=== PATIENT | female | born 1945 | race Two or more races ===

== ENCOUNTER 2020-03-08 18:31 | Emergency (ER) | payer OTHER ==
[~2020-03-08] VITALS: Ht 154.9 cm; Wt 72.1 kg
[2020-03-08] MEDS ORDERED: ONDANSETRON ODT 4 MG TAB PO ONE (19:00)
[2020-03-08 21:43] VITALS: BP 140/56
== END 2020-03-08 22:15 | disposition home or self-care (01) ==
LOC: ER 18:31
DX: U07.1 COVID-19 (principal); R11.2 Nausea with vomiting, unspecified
CPT/HCPCS: 36415; 71045; 87426; 99284; Q0162

== ENCOUNTER 2020-03-12 20:25 | Emergency (ER) | payer OTHER ==
[~2020-03-12] VITALS: Ht 157.5 cm; Wt 74.8 kg
[2020-03-12 21:04] VITALS: BP 178/67
== END 2020-03-12 23:40 | disposition home or self-care (01) ==
LOC: ER 20:28
DX: U07.1 COVID-19 (principal); M79.10 Myalgia, unspecified site; R53.1 Weakness; M25.50 Pain in unspecified joint
CPT/HCPCS: 71045

== ENCOUNTER 2020-03-15 09:17 | Inpatient (IN) | payer OTHER ==
[~2020-03-15] VITALS: Ht 157.5 cm; Wt 74.8 kg
[2020-03-15] MEDS ORDERED: SODIUM CHLORIDE 0.9% 1,000 ML IV ONE (09:55)
[2020-03-15 11:08] LABS: Basophils # (auto) 0 10 ^3/uL (0-0.2); Basophils % (auto) 0.1 % (0.0-2.0); Eosinophils # (auto) 0 10 ^3/uL (0-0.8); Eosinophils % (auto) 0.1 % (0.0-7.0); Neutrophils # (auto) 5.6 10 ^3/uL (1.6-8.6); Red Cell Distribution Width 13.3 % (11.8-14.3)
[2020-03-15 11:09] LABS: Hematocrit 32.6 % (36.0-46.0); Hemoglobin 10.9 g/dL (12.2-16.2); Lymphocytes % (auto) 14.4 % (10.0-50.0); Mean Corpuscular Hemoglobin 29.7 pg (28.0-32.0); Mean Corpuscular Hgb Conc. 33.6 g/dL (32.0-36.0); Mean Corpuscular Volume 88.5 fL (80.0-100.0); Monocytes # (auto) 0.5 10 ^3/uL (0-1.3); Monocytes % (auto) 6.5 % (0.0-12.0); Neutrophils % (auto) 78.9 % (37.0-80.0); Platelet Count (auto) 476 10^3/uL (140-450); Red Blood Cells 3.68 10^6/uL (4.0-5.20); White Blood Cell 7.1 10^3/uL (4.4-10.8)
[2020-03-15 11:39] LABS: Albumin 3.4 g/dL (3.4-5.0); Anion Gap 9 (5-15); BUN/Creatinine Ratio 20.6; Blood Urea Nitrogen 14 mg/dL (7-18); Calcium 8.2 mg/dL (8.5-10.1); Carbon Dioxide 26 mmol/L (21-32); Chloride 84 mmol/L (98-107); GFR African American 109 mL/min; GFR Non-African American 90 mL/min; Glucose 110 mg/dL (74-106); Potassium 4.3 mmol/L (3.5-5.1)
[2020-03-15 11:46] LABS: Alanine Aminotransferase 22 U/L (13-56); Alkaline Phosphatase 86 U/L (45-117); Aspartate Aminotransferase 18 U/L (15-37); Bilirubin, Total 0.3 mg/dL (0.2-1.0); Total Protein 6.9 g/dL (6.4-8.2)
[2020-03-15 12:07] LABS: Sodium 119 mmol/L (136-145)
[2020-03-15] MEDS ORDERED: IOHEXOL 350 MG/ML 100ML IJ ONE (13:02)
[2020-03-15 15:05] LABS: Urine WBC None Seen /hpf (0 - 5)
[2020-03-15 15:19] LABS: Urine Amorphous Crystal FEW /hpf (None Seen); Urine Bacteria NONE SEEN /hpf (None Seen); Urine Blood Negative /uL (Negative); Urine Hyaline Cast FEW /lpf (0 - 2); Urine Mucus FEW (None Seen); Urine Specific Gravity 1.013 (1.001-1.035)
[2020-03-15] MEDS ORDERED: ALBUTEROL SULF HFA 90MCG INH 200DOSE IN PRN (16:30)
[2020-03-15] MEDS ORDERED: MORPHINE SULF INJ 2 MG/ML SYRINGE 1ML IV PRN (16:30)
[2020-03-15] MEDS ORDERED: NITROGLYCERIN 0.4 MG SL TAB SL PRN (16:30)
[2020-03-15] MEDS ORDERED: ONDANSETRON HCL 4 MG/2 ML VIAL IV PRN (16:30)
[2020-03-15] MEDS ORDERED: hydrALAZINE HCL 20 MG/ML VL IV PRN (16:30)
[2020-03-15] MEDS ORDERED: HYDROcodone-ACET 5/325MG TAB PO PRN (16:30)
[2020-03-15] MEDS ORDERED: ACETAMINOPHEN 325 MG TAB PO PRN (16:30)
[2020-03-15] MEDS: SODIUM CHLORIDE 0.9% 1,000 ML IV SCH (17:13)
[2020-03-15] MEDS ORDERED: FURO1TAB33 PO (17:40)
[2020-03-15] MEDS ORDERED: LISI-646 PO (17:40)
[2020-03-15 17:53] LABS: BUN/Creatinine Ratio 20.3; Potassium 4.2 mmol/L (3.5-5.1)
[2020-03-15 17:54] LABS: Calcium 7.8 mg/dL (8.5-10.1)
[2020-03-15 21:14] LABS: Anion Gap 7 (5-15); Blood Urea Nitrogen 13 mg/dL (7-18); Calcium 7.6 mg/dL (8.5-10.1); Carbon Dioxide 24 mmol/L (21-32); Chloride 90 mmol/L (98-107); GFR African American 115 mL/min; GFR Non-African American 95 mL/min; Glucose 107 mg/dL (74-106); Potassium 4.2 mmol/L (3.5-5.1); Sodium 121 mmol/L (136-145)
[2020-03-15] MEDS: ENOXAPARIN SOD 80 MG/0.8ML SYRINGE SC SCH (22:17)
--- NOTE | 2020-03-15 22:50 | NUR ---
Respiratory note: ASSESSMENT FOR PRN MDI. PT IN NO RESPIRATORY DISTRESS AT THIS TIME. HR 67, SPO2 98% ON 2L NC, RR 18. MDI TX NOT INDICATED AT THIS TIME, WILL CONTINUE TO MONITOR.
[2020-03-16] MEDS: SODIUM CHLORIDE 0.9% 1,000 ML IV SCH ×3 (00:05→16:30)
[2020-03-16 01:07] LABS: Potassium 4.2 mmol/L (3.5-5.1)
[2020-03-16 01:34] LABS: BUN/Creatinine Ratio 17.9; Calcium 7.7 mg/dL (8.5-10.1)
[2020-03-16 03:36] VITALS: BP 108/46
[2020-03-16] MEDS: ALBUTEROL SULF HFA 90MCG INH 200DOSE IN SCH ×3 (06:59→20:54)
[2020-03-16 08:14] LABS: Basophils # (auto) 0 10 ^3/uL (0-0.2); Basophils % (auto) 0.5 % (0.0-2.0); Eosinophils # (auto) 0 10 ^3/uL (0-0.8); Eosinophils % (auto) 0.3 % (0.0-7.0); Hematocrit 34.9 % (36.0-46.0); Hemoglobin 11.5 g/dL (12.2-16.2); Lymphocytes # (auto) 2.4 10 ^3/uL (0.4-5.4); Lymphocytes % (auto) 30.4 % (10.0-50.0); Mean Corpuscular Hemoglobin 29.6 pg (28.0-32.0); Mean Corpuscular Hgb Conc. 33.1 g/dL (32.0-36.0); Mean Corpuscular Volume 89.5 fL (80.0-100.0); Monocytes # (auto) 0.4 10 ^3/uL (0-1.3); Monocytes % (auto) 5.5 % (0.0-12.0); Neutrophils % (auto) 63.3 % (37.0-80.0); Nucleated Red Blood Cells % 0.2 %; Platelet Count (auto) 484 10^3/uL (140-450); Red Cell Distribution Width 13.5 % (11.8-14.3); White Blood Cell 7.9 10^3/uL (4.4-10.8)
[2020-03-16 08:36] LABS: Calcium 7.8 mg/dL (8.5-10.1); Potassium 4.5 mmol/L (3.5-5.1)
[2020-03-16 08:39] LABS: BUN/Creatinine Ratio 11.8
[2020-03-16] MEDS: DexAMETHasone 4 MG TAB PO SCH (11:22)
[2020-03-16] MEDS: ZINC SULFATE 220mg CAP or TAB PO SCH (11:22)
[2020-03-16] MEDS: PANTOPRAZOLE 40 MG TAB PO SCH (11:23)
[2020-03-16] MEDS: ASCORBIC ACID 500 MG TAB PO SCH (11:23)
[2020-03-16] MEDS: ENOXAPARIN SOD 80 MG/0.8ML SYRINGE SC SCH ×2 (11:24→22:05)
[2020-03-16] MEDS: CHOLECALCIFEROL (VITD3) 2,000 UNIT CAP PO SCH (11:24)
[2020-03-16 13:05] LABS: BUN/Creatinine Ratio 17.2; Calcium 7.8 mg/dL (8.5-10.1); Potassium 4.3 mmol/L (3.5-5.1)
[2020-03-16 16:10] LABS: BUN/Creatinine Ratio 19.6; Calcium 7.9 mg/dL (8.5-10.1); Potassium 4.6 mmol/L (3.5-5.1)
[2020-03-16] MEDS ORDERED: HYDR25TA4 PO (18:34)
[2020-03-16] MEDS ORDERED: LISI30TA4 PO (18:34)
[2020-03-16] MEDS ORDERED: METO-169 PO (18:35)
[2020-03-16 20:49] LABS: BUN/Creatinine Ratio 13.2; Calcium 8.3 mg/dL (8.5-10.1); Potassium 4.7 mmol/L (3.5-5.1)
[2020-03-16 23:29] LABS: Calcium 8.3 mg/dL (8.5-10.1); Potassium 4.5 mmol/L (3.5-5.1)
[2020-03-17 03:08] LABS: BUN/Creatinine Ratio 14.3; Calcium 8.4 mg/dL (8.5-10.1); Potassium 4.6 mmol/L (3.5-5.1)
[2020-03-17] MEDS: ALBUTEROL SULF HFA 90MCG INH 200DOSE IN SCH ×2 (06:31→14:52)
--- NOTE | 2020-03-17 06:31 | NUR ---
Respiratory note: PT IS AWAKE, AND ALERT. NO RESPIRATORY DISTRESS NOTED. SPO2 97% ON RA, HR 67, RR 22, BS CLEAR BILATERALLY. 1 PUFF ALBUTEROL (90MCG) GIVEN VIA MDI WITH CHAMBER. NO ADVERSE EFFECTS NOTED. NO FURTHER RESPIRATORY INTERVENTIONS INDICATED AT THIS TIME. RN AT BEDSIDE. CHARTING COMPLETE FROM OUTSIDE OF PT ROOM PER COVID-19 PRECAUTIONS/PROTOCOL.
[2020-03-17] MEDS: SODIUM CHLORIDE 0.9% 1,000 ML IV SCH ×2 (06:37→08:33)
[2020-03-17 07:21] LABS: Calcium 8.7 mg/dL (8.5-10.1); Potassium 4.6 mmol/L (3.5-5.1)
[2020-03-17 07:23] LABS: BUN/Creatinine Ratio 16.4
[2020-03-17 07:59] LABS: Basophils # (auto) 0 10 ^3/uL (0-0.2); Eosinophils # (auto) 0 10 ^3/uL (0-0.8); Hemoglobin 10.4 g/dL (12.2-16.2); Monocytes # (auto) 0.2 10 ^3/uL (0-1.3); Neutrophils # (auto) 3.7 10 ^3/uL (1.6-8.6); Nucleated Red Blood Cells % 0.1 %; White Blood Cell 4.9 10^3/uL (4.4-10.8)
[2020-03-17 08:01] LABS: Basophils % (auto) 0.4 % (0.0-2.0); Hematocrit 31.6 % (36.0-46.0); Lymphocytes % (auto) 19.8 % (10.0-50.0); Mean Corpuscular Hemoglobin 29.4 pg (28.0-32.0); Mean Corpuscular Hgb Conc. 33.1 g/dL (32.0-36.0); Mean Corpuscular Volume 89.1 fL (80.0-100.0); Neutrophils % (auto) 75.8 % (37.0-80.0); Platelet Count (auto) 459 10^3/uL (140-450); Red Blood Cells 3.55 10^6/uL (4.0-5.20); Red Cell Distribution Width 14.1 % (11.8-14.3)
[2020-03-17 08:05] LABS: CRP High Sensitivity 6.01 mg/dL (< 0.3)
[2020-03-17] MEDS: PANTOPRAZOLE 40 MG TAB PO SCH (09:43)
[2020-03-17] MEDS: ASCORBIC ACID 500 MG TAB PO SCH (09:43)
[2020-03-17] MEDS: DexAMETHasone 4 MG TAB PO SCH (09:43)
[2020-03-17] MEDS: ZINC SULFATE 220mg CAP or TAB PO SCH (09:43)
[2020-03-17] MEDS: CHOLECALCIFEROL (VITD3) 2,000 UNIT CAP PO SCH (09:43)
[2020-03-17] MEDS: ENOXAPARIN SOD 80 MG/0.8ML SYRINGE SC SCH (09:44)
[2020-03-17 10:51] LABS: BUN/Creatinine Ratio 14.9; Calcium 8.6 mg/dL (8.5-10.1); Potassium 4.3 mmol/L (3.5-5.1)
[2020-03-17] MEDS ORDERED: SODIUM CHLORIDE 0.9% 1,000 ML IV SCH (12:30)
[2020-03-17] MEDS ORDERED: METOPROLOL SUCCINATE XL 50 MG TAB PO ONE (14:00)
[2020-03-17] MEDS ORDERED: LISINOPRIL 20 MG TAB PO ONE (14:00)
[2020-03-17 15:33] LABS: BUN/Creatinine Ratio 16.9; Calcium 8.1 mg/dL (8.5-10.1); Potassium 5.1 mmol/L (3.5-5.1)
[2020-03-17] MEDS ORDERED: ZINC220T6 PO (16:43)
[2020-03-17] MEDS ORDERED: ALBUAER3 IN (16:43)
[2020-03-17] MEDS ORDERED: HYDR-2691 PO (16:43)
[2020-03-17] MEDS ORDERED: DEX4T PO (16:43)
[2020-03-17] MEDS ORDERED: AZIT500T66 PO (16:43)
[2020-03-17] MEDS ORDERED: CHOL1CAP47 PO (16:43)
[2020-03-17] MEDS ORDERED: ASCO500T11 PO (16:43)
[2020-03-17] MEDS ORDERED: LISI-646 PO (16:44)
[2020-03-17 17:00] VITALS: BP 171/67
[2020-03-17] MEDS ORDERED: hydrALAZINE HCL 25 MG TAB PO SCH (18:00)
[2020-03-18] MEDS ORDERED: LISINOPRIL 20 MG TAB PO SCH (10:00)
[2020-03-18] MEDS ORDERED: METOPROLOL SUCCINATE XL 50 MG TAB PO SCH (10:00)
== END 2020-03-17 19:15 | disposition home health service (06) | DRG 177 ==
LOC: ER 09:17 → OVERFLOW 09:18
PROVIDERS: ADMIT Internal Medicine; ATTEND Internal Medicine
DX: U07.1 COVID-19 (principal); J96.01 Acute respiratory failure with hypoxia; E87.1 Hypo-osmolality and hyponatremia; J98.11 Atelectasis; F41.9 Anxiety disorder, unspecified; I10 Essential (primary) hypertension
CPT/HCPCS: 36415; 36600; 71045; 71275; 80048; 80053; 81001; 82728; 82805; 83880; 84484; 85025; 85379; 86141; 87040; 87426; 93970; 94640; 97110; 97116; 97530; 99291; G0378

== ENCOUNTER 2020-03-25 18:28 | Inpatient (IN) | payer OTHER ==
[~2020-03-25] VITALS: Ht 157.5 cm; Wt 78.0 kg
[~2020-03-25 18:28] MED LIST: ALBUAER3 IN; ASCO500T11 PO; AZIT500T66 PO; CHOL1CAP47 PO; DEX4T PO; FURO1TAB33 PO; HYDR-2691 PO; HYDR25TA4 PO; LISI-646 PO; LISI30TA4 PO; METO-169 PO; ZINC220T6 PO
[2020-03-25 20:55] LABS: Basophils # (auto) 0 10 ^3/uL (0-0.2); Eosinophils # (auto) 0.1 10 ^3/uL (0-0.8); Hemoglobin 10.5 g/dL (12.2-16.2); Monocytes # (auto) 0.5 10 ^3/uL (0-1.3); Red Cell Distribution Width 13.7 % (11.8-14.3); White Blood Cell 8.2 10^3/uL (4.4-10.8)
[2020-03-25 20:57] LABS: Basophils % (auto) 0.5 % (0.0-2.0); Eosinophils % (auto) 1.4 % (0.0-7.0); Hematocrit 30.2 % (36.0-46.0); Lymphocytes # (auto) 1.7 10 ^3/uL (0.4-5.4); Mean Corpuscular Hemoglobin 30.7 pg (28.0-32.0); Mean Corpuscular Hgb Conc. 34.7 g/dL (32.0-36.0); Mean Corpuscular Volume 88.2 fL (80.0-100.0); Monocytes % (auto) 5.9 % (0.0-12.0); Neutrophils # (auto) 5.8 10 ^3/uL (1.6-8.6); Neutrophils % (auto) 71.2 % (37.0-80.0); Platelet Count (auto) 577 10^3/uL (140-450); Red Blood Cells 3.42 10^6/uL (4.0-5.20)
[2020-03-25 21:05] LABS: Albumin 3.3 g/dL (3.4-5.0); Anion Gap 8 (5-15); Blood Urea Nitrogen 12 mg/dL (7-18); Calcium 8.2 mg/dL (8.5-10.1); Carbon Dioxide 19 mmol/L (21-32); Chloride 91 mmol/L (98-107); Glucose 102 mg/dL (74-106); Potassium 4.6 mmol/L (3.5-5.1)
[2020-03-25 21:12] LABS: Alanine Aminotransferase 33 U/L (13-56); Alkaline Phosphatase 84 U/L (45-117); Aspartate Aminotransferase 19 U/L (15-37); BUN/Creatinine Ratio 13.8; Bilirubin, Total 0.4 mg/dL (0.2-1.0); GFR African American 82 mL/min; GFR Non-African American 68 mL/min; Total Protein 6.9 g/dL (6.4-8.2)
[2020-03-25 21:21] LABS: Sodium 118 mmol/L (136-145)
[2020-03-25] MEDS ORDERED: SODIUM CHL 3% 500 ML IV ONE (21:30)
[2020-03-25 22:10] LABS: INR 0.94 (0.9-1.15); Partial Thromboplastin Time 27.5 sec (23.0-31.2)
--- NOTE | 2020-03-25 22:44 | NUR ---
Sleeping Pill Paged Dr. Blakely after hours, spoke to Dr. Johnathon Mccray about patient request. Dr. Mccray ordered Benadryl 25 mg PO once, repeated orders to verified. Addendum: 03/27/20 at 0154 by SHARA SILVER RN RN Actual date 03/26/20
[2020-03-25 23:21] LABS: Urine Bacteria FEW /hpf (None Seen); Urine Blood Negative /uL (Negative); Urine Specific Gravity 1.007 (1.001-1.035); Urine WBC 4 /hpf (0 - 5)
[2020-03-26] VITALS (8 sets, daily range): BP systolic 116–171; BP diastolic 56–74
[2020-03-26] MEDS ORDERED: DOCUSATE SOD 100 MG CAP PO PRN (01:15)
[2020-03-26] MEDS ORDERED: ACETAMINOPHEN 325 MG TAB PO PRN (01:15)
[2020-03-26] MEDS ORDERED: ONDANSETRON HCL 4 MG/2 ML VIAL IV PRN (01:15)
[2020-03-26 01:51] LABS: BUN/Creatinine Ratio 12.2; Calcium 8.6 mg/dL (8.5-10.1); Potassium 4.2 mmol/L (3.5-5.1)
--- NOTE | 2020-03-26 03:21 | NUR ---
MS admit from ER to Covid-19 Unit BHARGAVI RECINOS admitted to tele/MS. Patient oriented to SARA PELAYO, primary RN, unit, room, bed, and unit policies regarding patient care and visiting hours. Patient is alert and oriented x4. Patient denies pain or shortness of breath at this time. No sign/symptoms of distress noted or verbalized at this time. Instructed on plan of care and encouraged patient to call for assistance as needed, patient verbalized understanding. Bed is locked in lowest position, side rails x 2 are up, and call light is within reach.
[2020-03-26] MEDS ORDERED: LISI-646 PO (04:22)
[2020-03-26] MEDS: SODIUM CHLORIDE 0.9% 1,000 ML IV SCH ×2 (06:08→18:26)
[2020-03-26 07:22] LABS: Hemoglobin 10.5 g/dL (12.2-16.2)
[2020-03-26 07:23] LABS: Hematocrit 30.3 % (36.0-46.0); Mean Corpuscular Hemoglobin 30.6 pg (28.0-32.0); Mean Corpuscular Hgb Conc. 34.7 g/dL (32.0-36.0); Platelet Count (auto) 535 10^3/uL (140-450); Red Blood Cells 3.44 10^6/uL (4.0-5.20); Red Cell Distribution Width 13.6 % (11.8-14.3); White Blood Cell 6.6 10^3/uL (4.4-10.8)
[2020-03-26 07:31] LABS: Band Neutrophils % (manual) 0; Basophils % (manual) 0 (0.0-2.0); Blast Cells 0; Metamyelocytes % 0; Promyelocytes % 0; Reactive Lymphocytes 0
[2020-03-26 07:42] LABS: BUN/Creatinine Ratio 12.3; Potassium 4.4 mmol/L (3.5-5.1)
[2020-03-26 07:50] LABS: Eosinophils % (manual) 3 (0-7); Lymphocytes % (manual) 21 (10.0-50.0); Monocytes % (manual) 6 (0-12); Myelocytes % 1
--- NOTE | 2020-03-26 07:55 | NUR ---
Opening Shift Note Assumed care of patient, patient awake and alert sitting up in bed. Patient is on RA with even and unlabored respirations. No S/S of distress/SOB or pain at this time. Bed is in lowest locked position, side rails up x2, bed alarm set for safety, and call light is within reach. Instructed on POC and to call for assist PRN, will continue to monitor for changes Q1hr and PRN.
--- NOTE | 2020-03-26 09:10 | NUR ---
ELEVATED BP BP ELEVATED TO 164/74 HR 88. PT STATED USUALLY TAKES LISINOPRIL 20 MG DAILY AT HOME. NO ORDERS FOR BP MEDICATIONS AT THIS TIME. DARRICK HOSPITALIST PAGED. AWAITING RETURN CALL. Addendum: 03/26/20 at 0928 by KRYSTLE COX RN PT STATED SHE USUALLY TAKE LISINOPRIL 30 MG DAILY AT HOME.
--- NOTE | 2020-03-26 09:19 | NUR ---
SPOKE WITH DR. TRAN SPOKE WITH DR. TRAN RE: ELEVATED BP. NEW ORDER RECEIVED TO CONTINUE HOME MEDICATION, LISINOPRIL. ORDERS CARRIED OUT IN [facility]. WILL CONTINUE TO MONITOR Q1H AND PRN.
[2020-03-26] MEDS ORDERED: HYDR-2691 PO (09:27)
[2020-03-26] MEDS ORDERED: LISI30TA4 PO (09:29)
[2020-03-26] MEDS ORDERED: LISINOPRIL 20 MG TAB PO SCH (10:00)
[2020-03-26] MEDS: cefTRIAXone 1GM/50ML D5W 50 ML IV SCH (10:53)
[2020-03-26] MEDS: LISINOPRIL 20 MG TAB PO SCH (10:53)
--- NOTE | 2020-03-26 12:45 | NUR ---
BP REASSESSED PT BLOOD PRESSURE RECHECKED, NOW 139/56 HR 92. WILL CONTINUE TO MONITOR Q1H AND PRN.
--- NOTE | 2020-03-26 13:31 | NUR ---
REPORT GIVEN TO SRAVAN MARTIN.
--- NOTE | 2020-03-26 19:45 | NUR ---
Opening Shift Note Assumed care of patient, awake and alert. No S/S of distress/SOB or pain. Instructed on POC and to call for assist PRN, will continue to monitor for changes Q1hr and PRN.
--- NOTE | 2020-03-26 22:04 | NUR ---
Sleeping Pill Patient is requesting a sleeping pill due to difficulty falling a sleep.
--- NOTE | 2020-03-26 22:25 | NUR ---
Respiratory note: PT SEEN AND ASSESSED AT THIS TIME. NO RESPIRATORY DISTRESS NOTED. HR 77 RR 16 SP02 99% ON ROOM AIR.
[2020-03-26] MEDS ORDERED: diphenhdrAMINE HCL 25 MG CAP PO ONE (23:00)
[2020-03-27 05:00] VITALS: BP 144/72
--- NOTE | 2020-03-27 05:00 | NUR ---
Pricila Swab Pricila swab obtained and sent to lab. Walked down by Eligio MARTIN.
[2020-03-27 07:59] LABS: Basophils # (auto) 0.1 10 ^3/uL (0-0.2); Basophils % (auto) 1.4 % (0.0-2.0); Eosinophils # (auto) 0.2 10 ^3/uL (0-0.8); Monocytes # (auto) 0.3 10 ^3/uL (0-1.3); Monocytes % (auto) 5.7 % (0.0-12.0); Neutrophils # (auto) 3.4 10 ^3/uL (1.6-8.6)
[2020-03-27 08:02] LABS: Eosinophils % (auto) 3.9 % (0.0-7.0); Hematocrit 31.5 % (36.0-46.0); Hemoglobin 10.8 g/dL (12.2-16.2); Lymphocytes # (auto) 1.9 10 ^3/uL (0.4-5.4); Lymphocytes % (auto) 32.1 % (10.0-50.0); Mean Corpuscular Hemoglobin 30.2 pg (28.0-32.0); Mean Corpuscular Hgb Conc. 34.1 g/dL (32.0-36.0); Mean Corpuscular Volume 88.5 fL (80.0-100.0); Neutrophils % (auto) 56.9 % (37.0-80.0); Platelet Count (auto) 578 10^3/uL (140-450); Red Blood Cells 3.56 10^6/uL (4.0-5.20); Red Cell Distribution Width 13.9 % (11.8-14.3); White Blood Cell 5.9 10^3/uL (4.4-10.8)
[2020-03-27 08:26] LABS: BUN/Creatinine Ratio 15.5; Magnesium 2.2 mg/dL (1.6-2.6); Potassium 4.5 mmol/L (3.5-5.1)
[2020-03-27 09:00] VITALS: BP 159/70
[2020-03-27 13:00] VITALS: BP 158/64
[2020-03-27] MEDS: LISINOPRIL 20 MG TAB PO SCH (13:04)
[2020-03-27] MEDS: SODIUM CHLORIDE 0.9% 1,000 ML IV SCH (13:04)
[2020-03-27] MEDS: cefTRIAXone 1GM/50ML D5W 50 ML IV SCH (13:04)
--- NOTE | 2020-03-27 15:33 | NUR ---
Discharge instructions given as ordered. Encourage to follow up with PMD as instructed. All questions and concerns addressed. Patient verbalized understanding. Medication reconciliation form completed and copy given to patient. IV removed with catheter intact, pressure dressing applied. Patient taken to vehicle via wheelchair with all personal belongings, accompanied by staff . No distress noted at time of departure.
== END 2020-03-27 15:30 | disposition home or self-care (01) | DRG 641 ==
LOC: ER 18:28 → OVERFLOW 18:29 → TELE-EAST 03-26 03:19 → EAST 03-26 04:21
PROVIDERS: ADMIT Hospitalist; ATTEND Internal Medicine
DX: E87.1 Hypo-osmolality and hyponatremia (principal); N39.0 Urinary tract infection, site not specified; E87.2 Acidosis; R20.0 Anesthesia of skin; E88.09 Other disorders of plasma-protein metabolism, not elsewhere classified; I10 Essential (primary) hypertension; Z20.828 Contact with and (suspected) exposure to other viral communicable diseases; Z86.19 Personal history of other infectious and parasitic diseases; Z79.899 Other long term (current) drug therapy; Z79.01 Long term (current) use of anticoagulants; Z79.891 Long term (current) use of opiate analgesic; Z98.891 History of uterine scar from previous surgery
CPT/HCPCS: 36415; 80048; 80053; 81001; 83735; 83880; 84484; 85007; 85025; 85027; 85610; 85730; 87081; 87086; 87426; 97163; G0378; J0696

== ENCOUNTER 2020-03-28 17:08 | Inpatient (IN) | payer OTHER ==
[~2020-03-28] VITALS: Ht 154.9 cm; Wt 78.2 kg
[~2020-03-28 17:08] MED LIST changes: -ALBUAER3 IN; -ASCO500T11 PO; -AZIT500T66 PO; -CHOL1CAP47 PO; -DEX4T PO; -HYDR25TA4 PO; -LISI-646 PO; -METO-169 PO; -ZINC220T6 PO
[2020-03-28 18:07] LABS: Basophils # (auto) 0 10 ^3/uL (0-0.2); Basophils % (auto) 0.4 % (0.0-2.0); Hemoglobin 10.8 g/dL (12.2-16.2); Mean Corpuscular Volume 88.3 fL (80.0-100.0); Monocytes # (auto) 0.5 10 ^3/uL (0-1.3); White Blood Cell 8.9 10^3/uL (4.4-10.8)
[2020-03-28 18:08] LABS: Eosinophils # (auto) 0.2 10 ^3/uL (0-0.8); Hematocrit 31.8 % (36.0-46.0); Lymphocytes # (auto) 1.8 10 ^3/uL (0.4-5.4); Lymphocytes % (auto) 20.1 % (10.0-50.0); Mean Corpuscular Hemoglobin 29.9 pg (28.0-32.0); Mean Corpuscular Hgb Conc. 33.9 g/dL (32.0-36.0); Monocytes % (auto) 5.1 % (0.0-12.0); Neutrophils # (auto) 6.4 10 ^3/uL (1.6-8.6); Neutrophils % (auto) 72.4 % (37.0-80.0); Platelet Count (auto) 639 10^3/uL (140-450); Red Cell Distribution Width 13.6 % (11.8-14.3)
[2020-03-28 18:11] LABS: Urine Bacteria NONE SEEN /hpf (None Seen); Urine Blood Negative /uL (Negative); Urine Mucus FEW (None Seen); Urine Specific Gravity 1.005 (1.001-1.035); Urine WBC 2 /hpf (0 - 5)
[2020-03-28 18:26] LABS: Albumin 3.5 g/dL (3.4-5.0); Anion Gap 8 (5-15); Blood Urea Nitrogen 5 mg/dL (7-18); Calcium 8.6 mg/dL (8.5-10.1); Carbon Dioxide 21 mmol/L (21-32); Chloride 93 mmol/L (98-107); Glucose 99 mg/dL (74-106); Potassium 4.5 mmol/L (3.5-5.1); Sodium 122 mmol/L (136-145)
[2020-03-28 18:31] LABS: Alanine Aminotransferase 26 U/L (13-56); Alkaline Phosphatase 87 U/L (45-117); Aspartate Aminotransferase 12 U/L (15-37); BUN/Creatinine Ratio 6.7; Bilirubin, Total 0.3 mg/dL (0.2-1.0); GFR African American 97 mL/min; GFR Non-African American 80 mL/min; Total Protein 7.2 g/dL (6.4-8.2)
[2020-03-28] MEDS ORDERED: SODIUM CHL 3% 500 ML IV ONE (20:45)
[2020-03-29 01:08] LABS: BUN/Creatinine Ratio 5.4; Calcium 9.1 mg/dL (8.5-10.1); Potassium 4.7 mmol/L (3.5-5.1)
[2020-03-29 01:10] LABS: Bilirubin, Total 0.3 mg/dL (0.2-1.0); Total Protein 6.5 g/dL (6.4-8.2)
[2020-03-29] MEDS ORDERED: ONDANSETRON HCL 4 MG/2 ML VIAL IV PRN (02:45)
[2020-03-29] MEDS ORDERED: ACETAMINOPHEN 325 MG TAB PO PRN (02:45)
[2020-03-29] MEDS ORDERED: TEMAZEPAM 15 MG CAP PO PRN (02:45)
[2020-03-29] MEDS ORDERED: SODIUM CHL 3% 500 ML IV ONE (02:45)
[2020-03-29 03:24] LABS: Calcium 8.6 mg/dL (8.5-10.1); Potassium 4.3 mmol/L (3.5-5.1)
[2020-03-29 03:30] LABS: Bilirubin, Total 0.4 mg/dL (0.2-1.0); Total Protein 6.3 g/dL (6.4-8.2)
[2020-03-29 03:50] VITALS: BP 135/58
[2020-03-29 05:00] VITALS: BP 150/72
[2020-03-29] MEDS: hydrALAZINE HCL 25 MG TAB PO SCH ×3 (06:11→18:39)
--- NOTE | 2020-03-29 07:30 | NUR ---
Opening Shift Note Assumed patient care from NOC RN. Patient currently sitting up in bed, with feet dangling. No signs of distress at this time. Respirations even and unlabored. Will continue to monitor q1hr and PRN.
[2020-03-29 09:00] VITALS: BP 164/69
[2020-03-29] MEDS: FAMOTIDINE 20 MG TAB PO SCH ×2 (09:11→21:51)
[2020-03-29] MEDS: METOPROLOL TARTRATE 25 MG TAB PO SCH ×2 (09:11→21:51)
[2020-03-29] MEDS: ENOXAPARIN SOD 40 MG/0.4 ML SYRINGE SC SCH (09:12)
[2020-03-29] MEDS ORDERED: LISINOPRIL 20 MG TAB PO SCH (10:00)
--- NOTE | 2020-03-29 11:51 | NUR ---
Spoke with Dr. Blakely regarding patient plan of care. New orders received, will carry out new orders.
[2020-03-29 13:00] VITALS: BP 131/71
--- NOTE | 2020-03-29 15:19 | NUR ---
Urine Sample Obtained urine sample, sent to lab. sleep tech aware.
--- NOTE | 2020-03-29 15:32 | NUR ---
Family Spoke with family. Spoke with daughter in law, Jenna, password confirmed. Updated on patient status.
[2020-03-29 16:33] LABS: Sodium Urine 80 mmol/L (40-220)
[2020-03-29 16:36] LABS: Creatinine, Urine 44 mg/dL (30.0-125.0)
[2020-03-29 16:41] VITALS: BP 140/90
--- NOTE | 2020-03-29 17:40 | NUR ---
at Bedside Dr. Blakely at bedside discussing plan of care with patient.
[2020-03-29] MEDS: Ensure HIGH Protein Chocolate 8oz Bottle PO SCH (18:39)
--- NOTE | 2020-03-29 19:30 | NUR ---
Opening Shift Note Assumed care of patient, awake and alert, sitting up in chair, No S/S of distress/SOB or pain. Instructed on POC and to call for assist PRN, will continue to monitor for changes Q1hr and PRN.
[2020-03-29] MEDS: LISINOPRIL 20 MG TAB PO SCH (21:52)
[2020-03-29 22:50] VITALS: BP 128/65
[2020-03-30] MEDS: hydrALAZINE HCL 25 MG TAB PO SCH ×4 (00:05→17:30)
[2020-03-30 05:40] VITALS: BP 116/56
[2020-03-30 06:40] LABS: Basophils # (auto) 0 10 ^3/uL (0-0.2); Basophils % (auto) 0.5 % (0.0-2.0); Eosinophils # (auto) 0.2 10 ^3/uL (0-0.8); Lymphocytes # (auto) 1.6 10 ^3/uL (0.4-5.4); Monocytes # (auto) 0.3 10 ^3/uL (0-1.3); Nucleated Red Blood Cells % 0.1 %; White Blood Cell 5.2 10^3/uL (4.4-10.8)
[2020-03-30 06:41] LABS: Hematocrit 27.3 % (36.0-46.0); Hemoglobin 9.5 g/dL (12.2-16.2); Mean Corpuscular Hemoglobin 31.2 pg (28.0-32.0); Monocytes % (auto) 5.9 % (0.0-12.0); Neutrophils % (auto) 58.6 % (37.0-80.0); Platelet Count (auto) 497 10^3/uL (140-450); Red Blood Cells 3.06 10^6/uL (4.0-5.20); Red Cell Distribution Width 13.8 % (11.8-14.3)
[2020-03-30 06:44] LABS: Potassium 4.7 mmol/L (3.5-5.1)
[2020-03-30 06:49] LABS: Calcium 8.7 mg/dL (8.5-10.1)
--- NOTE | 2020-03-30 07:05 | NUR ---
endorsed care to day RN. no sign of distress/pain at this time
--- NOTE | 2020-03-30 07:30 | NUR ---
Opening Shift Note Assumed patient care from NOC RN. Patient sitting at edge of bed, feet dangling for breakfast. No signs of distress at this time. Respirations even and unlabored. Denies pain and numbness of extremities. Will continue to monitor q1hr and PRN, call light within reach.
[2020-03-30 08:47] VITALS: BP 135/57
[2020-03-30] MEDS: Ensure HIGH Protein Chocolate 8oz Bottle PO SCH ×2 (08:53→18:17)
[2020-03-30] MEDS: FAMOTIDINE 20 MG TAB PO SCH ×2 (10:26→22:13)
[2020-03-30] MEDS: METOPROLOL TARTRATE 25 MG TAB PO SCH ×2 (10:28→22:13)
[2020-03-30] MEDS: LISINOPRIL 20 MG TAB PO SCH ×2 (10:29→22:14)
[2020-03-30] MEDS: ENOXAPARIN SOD 40 MG/0.4 ML SYRINGE SC SCH (10:30)
[2020-03-30 12:55] VITALS: BP 142/68
--- NOTE | 2020-03-30 15:30 | NUR ---
at Bedside Dr. Blkaely at bedside discussing plan of care with patient. Per MD, patient may be discharged when cleared by neurology.
[2020-03-30 16:55] VITALS: BP 110/58
--- NOTE | 2020-03-30 17:44 | NUR ---
consuslt for home health and safety eval. Contacted [facility] ([phone] faxed clinical information and contacted [facility] for authorization. [facility] will provide agency authorization and [facility] will see pt 24-48 hours post discharge.
[2020-03-30] MEDS ORDERED: ALPRAZolam 0.25 MG TAB PO ONE (17:45)
--- NOTE | 2020-03-30 19:00 | NUR ---
Opening Note Assumed care of patient, awake and alert. No S/S of distress/SOB, patient complained of pain on the IV site, requested to be removed because she is going to be discharge in the morning, refused another IV. Instructed on POC and to call for assist PRN, will continue to monitor for changes.
--- NOTE | 2020-03-30 20:50 | NUR ---
Patient in bed, resting, denies pain or discomfort.
[2020-03-30 23:09] VITALS: BP 158/69
[2020-03-31] MEDS: hydrALAZINE HCL 25 MG TAB PO SCH ×3 (00:17→12:00)
[2020-03-31 05:57] VITALS: BP 108/47
[2020-03-31] MEDS: Ensure HIGH Protein Chocolate 8oz Bottle PO SCH (08:00)
--- NOTE | 2020-03-31 08:10 | NUR ---
Opening Shift Note Assumed care of patient, awake and alert. No S/S of distress/SOB or pain. Instructed on POC and to call for assist PRN, will continue to monitor for changes Q1hr and PRN.
[2020-03-31 08:38] VITALS: BP 128/61
[2020-03-31] MEDS: FAMOTIDINE 20 MG TAB PO SCH (09:42)
[2020-03-31] MEDS: METOPROLOL TARTRATE 25 MG TAB PO SCH (09:43)
[2020-03-31] MEDS: LISINOPRIL 20 MG TAB PO SCH (09:44)
[2020-03-31] MEDS: ENOXAPARIN SOD 40 MG/0.4 ML SYRINGE SC SCH (09:44)
[2020-03-31 12:45] VITALS: BP 91/46
[2020-03-31 12:54] VITALS: BP 91/46
--- NOTE | 2020-03-31 13:13 | NUR ---
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 AWAITING CALL BACK.
--- NOTE | 2020-03-31 13:48 | NUR ---
I received a page from Nurse Kamila letting me know that patient is discharging home today. I called [facility] ([phone]) and spoke with Helen to make her aware-she will relay the message to her nursing team.
--- NOTE | 2020-03-31 13:59 | NUR ---
Discharge instructions given as ordered. Encourage to follow up with PMD as instructed. All questions and concerns addressed. Patient verbalized understanding. Medication reconciliation form completed and copy given to patient. Patient had no IV at time of discharge. Patient taken to vehicle via wheelchair with all personal belongings, accompanied by staff. No distress noted at time of departure.
--- NOTE | 2020-03-31 14:31 | NUR ---
I received a page from [facility] Coordinator Briseida-faxed her home health order as requested-letting her know that [facility] accepting and patient is discharged home today.
--- NOTE | 2020-03-31 15:42 | NUR ---
Nutrition Assessment Notes Please refer to link for full assessment notes. Est Energy needs: 3842-0587 kcals (17-20 kcal/kgBW) Est Protein needs: 78-86 gms/day (1.0-1.1 gm/kgBW) Will continue to monitor and reassess prn. Addendum: 03/31/20 at [address] Amended: Links added.
== END 2020-03-31 13:59 | disposition home health service (06) | DRG 641 ==
LOC: ER 17:08 → OVERFLOW 17:09 → WEST WING 03-29 03:24
PROVIDERS: ADMIT Nurse Practitioner; ATTEND Internal Medicine
DX: E87.1 Hypo-osmolality and hyponatremia (principal); J98.11 Atelectasis; I10 Essential (primary) hypertension; E66.01 Morbid (severe) obesity due to excess calories; Z68.32 Body mass index [BMI] 32.0-32.9, adult; K21.9 Gastro-esophageal reflux disease without esophagitis; E78.5 Hyperlipidemia, unspecified; E86.0 Dehydration; F41.9 Anxiety disorder, unspecified; E88.09 Other disorders of plasma-protein metabolism, not elsewhere classified
CPT/HCPCS: 36415; 70450; 71045; 80048; 80053; 81001; 82570; 83880; 83930; 83935; 84295; 84300; 84484; 85025; 87081; 93005; G0378

== ENCOUNTER 2021-07-29 14:34 | Inpatient (IN) | payer OTHER, MEDICAID ==
[~2021-07-29] VITALS: Ht 157.5 cm; Wt 72.0 kg
[~2021-07-29 14:34] MED LIST changes: -FURO1TAB33 PO; -HYDR-2691 PO; +HYDR25TA87 PO
[2021-07-29 15:44] LABS: Basophils # (auto) 0.1 10 ^3/uL (0-0.2); Basophils % (auto) 0.4 % (0.0-2.0); Eosinophils # (auto) 0.1 10 ^3/uL (0-0.8); Eosinophils % (auto) 0.7 % (0.0-7.0); Hematocrit 35.5 % (36.0-46.0); Hemoglobin 12.3 g/dL (12.2-16.2); Lymphocytes # (auto) 2.2 10 ^3/uL (0.4-5.4); Lymphocytes % (auto) 16.1 % (10.0-50.0); Mean Corpuscular Hemoglobin 30.5 pg (28.0-32.0); Mean Corpuscular Hgb Conc. 34.6 g/dL (32.0-36.0); Mean Corpuscular Volume 88.2 fL (80.0-100.0); Monocytes # (auto) 0.6 10 ^3/uL (0-1.3); Monocytes % (auto) 4.1 % (0.0-12.0); Neutrophils % (auto) 78.7 % (37.0-80.0); Red Blood Cells 4.03 10^6/uL (4.0-5.20); Red Cell Distribution Width 13.6 % (11.8-14.3)
[2021-07-29 16:04] LABS: Albumin 3.4 g/dL (3.4-5.0); Calcium 8.1 mg/dL (8.5-10.1); Potassium 3.6 mmol/L (3.5-5.1)
[2021-07-29 16:09] LABS: BUN/Creatinine Ratio 29.6; Bilirubin, Total 0.3 mg/dL (0.2-1.0); Total Protein 6.9 g/dL (6.4-8.2)
[2021-07-29] MEDS ORDERED: metroNIDAZOLE 500MG/100ML 100 ML IV ONE (17:00)
[2021-07-29] MEDS ORDERED: cefTRIAXone 1GM/50ML D5W 50 ML IV ONE (17:00)
[2021-07-29] MEDS ORDERED: ONDANSETRON HCL 4 MG/2 ML VIAL IV ONE (17:00)
[2021-07-29] MEDS ORDERED: MORPHINE SULFATE 4 MG/ML SYR/VIAL IV ONE (17:00)
[2021-07-29] MEDS ORDERED: MORPHINE SULFATE INJECTION 2 MG/ML SYRG IV PRN ×2 (18:30)
[2021-07-29] MEDS ORDERED: PROMETHAZINE HCL 25 MG/ML 1ML IV PRN (18:30)
[2021-07-29] MEDS ORDERED: MORPHINE SULFATE 4 MG/ML SYR/VIAL IV PRN (18:30)
[2021-07-29] MEDS ORDERED: D5W/LACTATED RINGERS 1,000 ML IV ONE (18:30)
[2021-07-29] MEDS ORDERED: hydrALAZINE HCL 20 MG/ML VL IV PRN (18:30)
[2021-07-29] MEDS ORDERED: NITROGLYCERIN 0.4 MG SL TAB SL PRN (18:30)
[2021-07-29] MEDS ORDERED: ACETAMINOPHEN 325 MG TAB PO PRN (18:30)
[2021-07-29] MEDS ORDERED: metroNIDAZOLE 500MG/100ML 100 ML IV SCH (22:00)
[2021-07-30 04:48] VITALS: BP 139/66
[2021-07-30] MEDS: metroNIDAZOLE 500MG/100ML 100 ML IV SCH ×3 (05:52→22:42)
[2021-07-30 09:00] VITALS: BP 146/59
[2021-07-30] MEDS: cefTRIAXone 1GM/50ML D5W 50 ML IV SCH (09:08)
[2021-07-30] MEDS: FAMOTIDINE (10MG/ML) 2ML VL IV SCH (09:08)
[2021-07-30] MEDS: ENOXAPARIN SOD 40 MG/0.4 ML SYRINGE SC SCH (10:00)
[2021-07-30 11:50] LABS: Basophils # (auto) 0 10 ^3/uL (0-0.2); Basophils % (auto) 0.1 % (0.0-2.0); Eosinophils # (auto) 0.1 10 ^3/uL (0-0.8); Eosinophils % (auto) 0.8 % (0.0-7.0); Hematocrit 34.7 % (36.0-46.0); Hemoglobin 11.9 g/dL (12.2-16.2); Lymphocytes # (auto) 2.1 10 ^3/uL (0.4-5.4); Lymphocytes % (auto) 16.1 % (10.0-50.0); Mean Corpuscular Hemoglobin 30.6 pg (28.0-32.0); Mean Corpuscular Hgb Conc. 34.3 g/dL (32.0-36.0); Mean Corpuscular Volume 89.3 fL (80.0-100.0); Monocytes # (auto) 0.7 10 ^3/uL (0-1.3); Monocytes % (auto) 5.1 % (0.0-12.0); Neutrophils % (auto) 77.9 % (37.0-80.0); Nucleated Red Blood Cells % 0.1 %; Red Blood Cells 3.89 10^6/uL (4.0-5.20); Red Cell Distribution Width 13.7 % (11.8-14.3); White Blood Cell 12.9 10^3/uL (4.4-10.8)
[2021-07-30 11:57] LABS: Calcium 8.3 mg/dL (8.5-10.1); Potassium 3.4 mmol/L (3.5-5.1)
[2021-07-30 12:02] LABS: BUN/Creatinine Ratio 25.5
[2021-07-30 12:54] VITALS: BP 129/66
[2021-07-30] MEDS ORDERED: HYDROcodone-ACET 5/325MG TAB PO PRN (15:00)
[2021-07-30 17:00] VITALS: BP 119/55
[2021-07-30 22:00] VITALS: BP 120/58
[2021-07-30 22:40] LABS: Urine Bacteria MOD /hpf (None Seen); Urine Blood 2+ /uL (Negative); Urine Mucus MODERATE (None Seen); Urine WBC 192 /hpf (0 - 5); Urine WBC Clumps PRESENT /hpf (None Seen)
[2021-07-31] MEDS: metroNIDAZOLE 500MG/100ML 100 ML IV SCH (06:20)
[2021-07-31 07:39] LABS: Basophils # (auto) 0 10 ^3/uL (0-0.2); Basophils % (auto) 0.2 % (0.0-2.0); Eosinophils # (auto) 0.2 10 ^3/uL (0-0.8); Eosinophils % (auto) 2.2 % (0.0-7.0); Hematocrit 32.6 % (36.0-46.0); Hemoglobin 11.1 g/dL (12.2-16.2); Lymphocytes # (auto) 1.8 10 ^3/uL (0.4-5.4); Lymphocytes % (auto) 18.6 % (10.0-50.0); Mean Corpuscular Hemoglobin 30.4 pg (28.0-32.0); Mean Corpuscular Hgb Conc. 34.1 g/dL (32.0-36.0); Mean Corpuscular Volume 89.1 fL (80.0-100.0); Monocytes # (auto) 0.4 10 ^3/uL (0-1.3); Monocytes % (auto) 4.7 % (0.0-12.0); Neutrophils # (auto) 7.1 10 ^3/uL (1.6-8.6); Neutrophils % (auto) 74.3 % (37.0-80.0); Red Blood Cells 3.66 10^6/uL (4.0-5.20); Red Cell Distribution Width 13.7 % (11.8-14.3); White Blood Cell 9.5 10^3/uL (4.4-10.8)
[2021-07-31 07:44] LABS: INR 1.01 (0.9-1.15)
[2021-07-31 07:54] LABS: Potassium 3.4 mmol/L (3.5-5.1)
[2021-07-31 07:59] LABS: BUN/Creatinine Ratio 15.6; Calcium 8.2 mg/dL (8.5-10.1)
[2021-07-31 09:00] VITALS: BP 129/45
[2021-07-31] MEDS: cefTRIAXone 1GM/50ML D5W 50 ML IV SCH (09:08)
[2021-07-31] MEDS: FAMOTIDINE (10MG/ML) 2ML VL IV SCH (09:49)
[2021-07-31] MEDS: ENOXAPARIN SOD 40 MG/0.4 ML SYRINGE SC SCH (09:50)
[2021-07-31] MEDS ORDERED: METR500T PO (11:26)
[2021-07-31] MEDS ORDERED: IBUP600T27 PO (11:26)
[2021-07-31] MEDS ORDERED: LEVO-28 PO (11:26)
[2021-07-31] MEDS ORDERED: FAMO-161 PO (11:26)
[2021-07-31 12:00] VITALS: BP 144/55
[2021-07-31 15:02] VITALS: BP 129/45
== END 2021-07-31 16:25 | disposition home or self-care (01) | DRG 387 ==
LOC: ER 14:34 → TELE 18:24 → TELE-CENTR 07-30 04:47
PROVIDERS: ADMIT Hospitalist; ATTEND Hospitalist
DX: K51.00 Ulcerative (chronic) pancolitis without complications (principal); E86.0 Dehydration; I11.9 Hypertensive heart disease without heart failure; Z82.49 Family history of ischemic heart disease and other diseases of the circulatory system; Z20.822 Contact with and (suspected) exposure to COVID-19
CPT/HCPCS: 36415; 74176; 80048; 80053; 81001; 83605; 83690; 84484; 85025; 85610; 87040; 87426; 96365; 96375; G0378; J0696; J2405; J3490

== ENCOUNTER 2021-08-29 12:31 | Inpatient (IN) | payer OTHER, MEDICAID ==
[~2021-08-29] VITALS: Ht 157.5 cm; Wt 74.8 kg
[~2021-08-29 12:31] MED LIST changes: +FAMO-161 PO; +IBUP600T27 PO; +LEVO-28 PO; +METR500T PO
[2021-08-29 14:34] LABS: Basophils # (auto) 0.1 10 ^3/uL (0-0.2); Basophils % (auto) 1.1 % (0.0-2.0); Eosinophils # (auto) 0.1 10 ^3/uL (0-0.8); Eosinophils % (auto) 2.6 % (0.0-7.0); Hematocrit 27.1 % (36.0-46.0); Hemoglobin 9.3 g/dL (12.2-16.2); Lymphocytes # (auto) 1.1 10 ^3/uL (0.4-5.4); Lymphocytes % (auto) 20.9 % (10.0-50.0); Mean Corpuscular Hemoglobin 30.7 pg (28.0-32.0); Mean Corpuscular Hgb Conc. 34.2 g/dL (32.0-36.0); Mean Corpuscular Volume 89.8 fL (80.0-100.0); Monocytes # (auto) 0.4 10 ^3/uL (0-1.3); Neutrophils # (auto) 3.5 10 ^3/uL (1.6-8.6); Neutrophils % (auto) 67.4 % (37.0-80.0); Nucleated Red Blood Cells % 0.1 %; Red Blood Cells 3.02 10^6/uL (4.0-5.20); Red Cell Distribution Width 14.2 % (11.8-14.3); White Blood Cell 5.1 10^3/uL (4.4-10.8)
[2021-08-29 14:46] LABS: Albumin 3.1 g/dL (3.4-5.0); BUN/Creatinine Ratio 12.8; Calcium 8.6 mg/dL (8.5-10.1); Potassium 3.9 mmol/L (3.5-5.1)
[2021-08-29 14:51] LABS: Bilirubin, Total 0.3 mg/dL (0.2-1.0); Total Protein 6.8 g/dL (6.4-8.2)
[2021-08-29 15:00] LABS: INR 1.09 (0.9-1.15)
[2021-08-29] MEDS ORDERED: FUROSEMIDE 100 MG/10ML VIAL IV ONE (16:15)
[2021-08-29] MEDS ORDERED: IOHEXOL 350 MG/ML 100ML IJ ONE (16:27)
[2021-08-29] MEDS ORDERED: MORPHINE SULFATE INJECTION 2 MG/ML SYRG IV PRN (23:45)
[2021-08-29] MEDS ORDERED: NITROGLYCERIN 0.4 MG SL TAB SL PRN (23:45)
[2021-08-29] MEDS ORDERED: DOCUSATE SOD 100 MG CAP PO PRN (23:45)
[2021-08-29] MEDS ORDERED: AZITHROMYCIN 500MG/ 250ML 250 ML IV ONE (23:45)
[2021-08-29] MEDS ORDERED: HYDROcodone-ACET 5/325MG TAB PO PRN (23:45)
[2021-08-29] MEDS ORDERED: ACETAMINOPHEN 325 MG TAB PO PRN (23:45)
[2021-08-29] MEDS ORDERED: ONDANSETRON HCL 4 MG/2 ML VIAL IV PRN (23:45)
[2021-08-30] MEDS ORDERED: METO-289 PO (03:31)
[2021-08-30] MEDS ORDERED: RIVA2.5T PO (03:31)
[2021-08-30 05:00] VITALS: BP 133/56
[2021-08-30] MEDS: SODIUM CHLOR 0.9% PF (SALINE LOCK) 10ML VIAL/SYR IV SCH ×2 (06:00→13:02)
[2021-08-30] MEDS ORDERED: MIN25T PO (06:04)
[2021-08-30] MEDS ORDERED: FURO40TA4 PO ×2 (06:04→11:07)
[2021-08-30 07:24] LABS: Basophils # (auto) 0 10 ^3/uL (0-0.2); Basophils % (auto) 0.4 % (0.0-2.0); Eosinophils # (auto) 0.1 10 ^3/uL (0-0.8); Eosinophils % (auto) 2.8 % (0.0-7.0); Hematocrit 25.5 % (36.0-46.0); Hemoglobin 9.2 g/dL (12.2-16.2); Lymphocytes # (auto) 1.2 10 ^3/uL (0.4-5.4); Lymphocytes % (auto) 26.9 % (10.0-50.0); Mean Corpuscular Hemoglobin 32.1 pg (28.0-32.0); Mean Corpuscular Volume 89.3 fL (80.0-100.0); Monocytes # (auto) 0.4 10 ^3/uL (0-1.3); Monocytes % (auto) 8.6 % (0.0-12.0); Neutrophils # (auto) 2.8 10 ^3/uL (1.6-8.6); Neutrophils % (auto) 61.3 % (37.0-80.0); Nucleated Red Blood Cells % 0.1 %; Red Blood Cells 2.86 10^6/uL (4.0-5.20); Red Cell Distribution Width 14.4 % (11.8-14.3); White Blood Cell 4.6 10^3/uL (4.4-10.8)
[2021-08-30 07:38] LABS: Albumin 2.9 g/dL (3.4-5.0); BUN/Creatinine Ratio 9.3; Calcium 8.7 mg/dL (8.5-10.1); Potassium 3.3 mmol/L (3.5-5.1)
[2021-08-30 07:41] LABS: Bilirubin, Total 0.3 mg/dL (0.2-1.0); Total Protein 6.2 g/dL (6.4-8.2)
[2021-08-30 09:07] VITALS: BP 119/56
[2021-08-30] MEDS ORDERED: FAMOTIDINE (10MG/ML) 2ML VL IV SCH (10:00)
[2021-08-30] MEDS ORDERED: CARVEDILOL 3.125 MG TAB PO SCH (10:00)
[2021-08-30] MEDS ORDERED: FUROSEMIDE 40 MG/4 ML VIAL IV SCH (10:00)
[2021-08-30] MEDS ORDERED: ENOXAPARIN SOD 40 MG/0.4 ML SYRINGE SC SCH (10:00)
[2021-08-30] MEDS ORDERED: POTASSIUM CHL 20 Meq TABLET PO ONE (11:30)
[2021-08-30 13:15] VITALS: BP 134/41
[2021-08-30 13:52] VITALS: BP 122/59
[2021-08-30] MEDS ORDERED: AZITHROMYCIN 500MG/ 250ML 250 ML IV SCH (21:00)
== END 2021-08-30 15:10 | disposition home or self-care (01) | DRG 291 ==
LOC: ER 12:31 → TELE 23:31 → TELE-CENTR 08-30 02:00
PROVIDERS: ADMIT Nurse Practitioner Family; ATTEND Internal Medicine
DX: I11.0 Hypertensive heart disease with heart failure (principal); I50.23 Acute on chronic systolic (congestive) heart failure; E87.1 Hypo-osmolality and hyponatremia; Z20.822 Contact with and (suspected) exposure to COVID-19; I95.9 Hypotension, unspecified; Z79.899 Other long term (current) drug therapy
CPT/HCPCS: 36415; 71045; 71275; 80053; 83880; 84484; 85025; 85379; 85610; 87426; 93005; 93306; 93970; 96365; 96375; G0378; J3490

== ENCOUNTER → 2022-02-11 | Outpatient (CLI) | payer OTHER, MEDICAID ==
[~2022-02-11] MED LIST changes: -FAMO-161 PO; +FURO40TA4 PO; -HYDR25TA87 PO; -IBUP600T27 PO; -LEVO-28 PO; -LISI30TA4 PO; +METO-289 PO; -METR500T PO; +MIN25T PO; +RIVA2.5T PO
== END | disposition home or self-care (01) ==
LOC: Rad HDHVI 15:24
PROVIDERS: ATTEND Internal Medicine Cardiovascular Disease
DX: I08.3 Combined rheumatic disorders of mitral, aortic and tricuspid valves (principal); R07.89 Other chest pain; R06.02 Shortness of breath
CPT/HCPCS: 93306

== ENCOUNTER → 2022-02-14 | Outpatient (CLI) | payer OTHER, MEDICAID ==
[~2022-02-14] VITALS: Ht 157.5 cm; Wt 72.6 kg
[~2022-02-14] MED LIST changes: +ADENOSINE 61 MG in GIVE UN-DILUTED 0 ML IV ONE; +ADENOSINE 90 MG/30 ML INJ IV ONE
== END | disposition home or self-care (01) ==
LOC: Rad HDHVI 08:35
PROVIDERS: ATTEND Internal Medicine Cardiovascular Disease
DX: I11.0 Hypertensive heart disease with heart failure (principal); I50.43 Acute on chronic combined systolic (congestive) and diastolic (congestive) heart failure; R07.89 Other chest pain; E78.2 Mixed hyperlipidemia; I42.1 Obstructive hypertrophic cardiomyopathy
CPT/HCPCS: 78452; 93005; 96374; 96375; A9500; J0153